=== PATIENT | male | born 1960 | race Caucasian/White ===

== ENCOUNTER 2020-06-22 08:27 | Day surgery (SDC) | payer BC ==
[2020-06-22] MEDS ORDERED: Propofol 200 MG/20 ML SDV IV ONE (08:28)
[2020-06-22] MEDS ORDERED: Glycopyrrolate 0.2 MG/ML 5 ML MDV IV ONE (08:28)
[2020-06-22] MEDS ORDERED: Sodium Chloride 0.9% 10 ML Syringe FLUSH PRN (08:30)
[2020-06-22] MEDS ORDERED: Lactated Ringers 1,000 ML IV SCH (08:30)
--- NOTE | 2020-06-22 10:52 | PCM.HPR ---
H & P Addendum review - H & P Addendum Review Date of Original H & P: 06/16/20 Date Reviewed: 06/22/20 Time Reviewed: 09:50 Patient was Examined: No Changes
--- NOTE | 2020-06-22 10:53 | PCM.OPNOTE ---
- General Post-Op/Procedure Note Date of Surgery/Procedure: 06/22/20 Operative Procedure(s): EGD. Colonoscopy with polypectomy Findings: Normal EGD Sig polyp and tics Pre Op Diagnosis: Fe Def Anemia, hx polyps Post-Op Diagnosis: Same Anesthesia Technique: MAC Primary Surgeon: Abel Bailey Pathology: Sig colon polyp EBL in mLs: 0 Complications: None Condition: Good
--- NOTE | 2020-06-22 12:21 | OR ---
DATE OF OPERATION: 06/22/2020 SURGEON: Abel Bailey MD PREOPERATIVE DIAGNOSES: 1. Iron-deficiency anemia. 2. History of colon polyps. POSTOPERATIVE DIAGNOSES: 1. Small hiatal hernia. 2. Sigmoid diverticulosis. 3. Sigmoid colon polyp. PROCEDURE: 1. Esophagogastroduodenoscopy. 2. Colonoscopy with polypectomy. ANESTHESIA: IV sedation. DESCRIPTION OF PROCEDURE: The patient was brought to the procedure room, where he was placed on his left side and IV sedation administered. Oral bite block was placed and the upper endoscope advanced into the esophagus under direct vision without difficulty. Vocal cords were viewed and were normal. Scope was advanced to the third portion of the duodenum. The duodenum and pylorus were normal. Antrum and body of the stomach were normal. Retroflexion reveals a normal-appearing fundus. There was a small hiatal hernia of approximately 2 cm in length. The squamocolumnar junction was normal. There was no evidence of reflux esophagitis, gastritis, or other abnormalities. Air was removed from the stomach and the scope withdrawn. The patient tolerated this portion of the procedure well. Next, colonoscopy was performed after digital rectal exam was done, which was normal. The colonoscope was inserted and advanced to the level of the cecum without difficulty. Cecal position was confirmed by identifying the appendiceal lumen and ileocecal valve. Prep was good and surfaces were well visualized. Upon withdrawing the scope, the ascending, transverse, and descending colon were normal in appearance. The sigmoid colon has a few large diverticula present. At approximately 50 cm, there was a large pedunculated polyp measuring up to a centimeter in length. This was removed with a cautery snare at its base and was completely resected. This was collected and sent for pathology review. The remaining sigmoid colon and rectum were normal. Retroflexion was normal. Air was removed and the scope withdrawn. The patient tolerated the procedure well and returned to recovery in stable condition. The patient will be contacted with the pathology report when it returns. The polyp was obviously adenomatous, and we would recommend he undergo routine surveillance colonoscopy again in 5 years. /[id number] FREDERIC/ELIJAH
== END 2020-06-22 11:31 | disposition home or self-care (01) ==
LOC: FB.SDS 08:27
PROVIDERS: ATTEND Surgery
DX: K63.5 Polyp of colon (principal); K44.9 Diaphragmatic hernia without obstruction or gangrene; K57.30 Diverticulosis of large intestine without perforation or abscess without bleeding; D50.9 Iron deficiency anemia, unspecified; E11.9 Type 2 diabetes mellitus without complications; I10 Essential (primary) hypertension; E78.00 Pure hypercholesterolemia, unspecified; Z79.82 Long term (current) use of aspirin; Z79.84 Long term (current) use of oral hypoglycemic drugs; Z79.899 Other long term (current) drug therapy; Z79.890 Hormone replacement therapy
CPT/HCPCS: 00813; 43235; 45385; 82962; 88305; J2704; J3490; J7120